=== PATIENT | male | born 1970 | race Caucasian/White ===

== ENCOUNTER 2023-05-24 15:38 | Outpatient (CLI) | payer BC, SELFPAY | END 2023-05-24 15:39 | disposition home or self-care (01) | PROVIDERS: PCP Emergency Medicine; Visit Provider Emergency Medicine | DX: Z00.00 Encounter for general adult medical examination without abnormal findings (principal); I10 Essential (primary) hypertension; Z13.6 Encounter for screening for cardiovascular disorders; Z12.5 Encounter for screening for malignant neoplasm of prostate | CPT/HCPCS: 80053; 80061; 84153 ==

== ENCOUNTER 2023-06-06 11:41 | Outpatient (CLI) | payer BC, SELFPAY ==
--- NOTE | 2023-06-06 13:16 | W.ANESCHARGE ---
Anesthesia Charges Start Date/Time Anesthesia Start Date: 06/06/23 Anesthesia Start Time: 12:40 Stop Date/Time Anesthesia Stop Date: 06/06/23 Anesthesia Stop Time: 13:11
--- NOTE | 2023-06-06 13:42 | W.ANESCHARGE ---
Anesthesia Charges Start Date/Time Anesthesia Start Date: 06/06/23 Anesthesia Start Time: 12:40 Stop Date/Time Anesthesia Stop Date: 06/06/23 Anesthesia Stop Time: 13:11
== END 2023-06-06 11:42 | disposition home or self-care (01) ==
LOC: OP CLINIC 11:42
PROVIDERS: PCP Emergency Medicine; Visit Provider Surgery
DX: Z12.11 Encounter for screening for malignant neoplasm of colon (principal); K63.5 Polyp of colon
CPT/HCPCS: 00811; 45385; 88305; J2704

== ENCOUNTER 2023-07-28 12:48 | Outpatient (CLI) | payer OTHER, SELFPAY | END 2023-07-28 12:49 | disposition home or self-care (01) | LOC: RAD 12:51 | PROVIDERS: PCP Emergency Medicine; Visit Provider Emergency Medicine | DX: I51.7 Cardiomegaly (principal); I10 Essential (primary) hypertension | CPT/HCPCS: 93306 ==

== ENCOUNTER 2023-10-31 19:24 | Outpatient (CLI) | payer OTHER, SELFPAY | END 2023-10-31 19:25 | disposition home or self-care (01) | LOC: LKVREF 19:24 | PROVIDERS: PCP Emergency Medicine; Visit Provider Emergency Medicine | DX: I10 Essential (primary) hypertension (principal) | CPT/HCPCS: 80048 ==

== ENCOUNTER 2023-12-25 08:28 | Outpatient (CLI) | payer OTHER, SELFPAY ==
--- OUTSIDE RECORDS SUMMARY | 2023-12-27 14:11 | XMS_ITS | Clinical Summary ---
Author Organization [facility] Address [place], [place] [address] Care Team Providers Care Counter Dish Carrier Name Role Phone Ana Graham MD Primary Care Provider [phone] Allergies Active Allergy Reactions Criticality Noted Date Comments Cephalosporins *Unknown 12/07/2023 Latex *Unknown 12/07/2023 Oxycodone *Unknown 12/07/2023 Medications Medication Sig Dispensed Refills Start Date End Date Status nitroglycerin (NITROSTAT) 0.[address] 2 Tablets (0.8 mg) under the tongue one time. Per CTA protocol 12/07/2023 Discontinued (*Med complete/Reg imen complete/Lev el of care change) metoprolol tartrate (LOPRESSOR) 50 mg tablet Take 1 Tablet (50 mg) by mouth. 12/07/2023 12/07/2023 Discontinued (*Med complete/Reg imen complete/Lev el of care change) metoprolol tartrate (LOPRESSOR) 5 mg/5 mL injection Inject 10 mg intravenous one time. Per CTA protocol 12/07/2023 Discontinued (*Med complete/Reg imen complete/Lev el of care change) Encounters Date Type Department Care Team Description 12/19/2023 Orders Only [facility] [address] [place], [place] [id number] Marva Camara MD <No scans attached> 12/07/2023 2:00 PM CDT [facility] [address] [place] [address] PRAVEEN Cifuentes [id number] 12/07/2023 1:45 PM CDT Orders [facility] [address] [facility] [address] [facility] [place] [address] Lab (/) 12/07/2023 Travel 11/07/2023 Telephone [place] [address] [place] [address] Marva Camara MD Cardiovascular Diagnostic Testing 11/02/2023 3:30 PM CDT Office Visit [facility] [address] [place] [address] Marva Camara MD from Last 3 Months Social History Tobacco Use Types Packs/Day Years Used Date Smoking Tobacco: Never Assessed Social Connections Answer Date Recorded Frequency of Communication with Friends and Fami ly Not on file 11/02/2023 Sex and Gender Information Value Date Recorded Sex Assigned at Not on file Gender Identity Not on file Sexual Orientation Not on file Plan of Treatment Health Maintenance Due Date Last Done Comments Tdap 01/05/1979 Depression screening for age 12+ 1980 HIV for age 15-65 01/05/1983 BMI (ht and wt on same day) for age 18+ 01/05/1986 Hepatitis C screening for ag e 18-79 01/05/1986 Tetanus booster 1988 Colonoscopy through age 75 01/05/2013 Lipids for age 45-75 01/05/2013 Zoster (shingles) series for age 50+ (1 of 2) 01/05/2018 COVID-19 vaccine series (2 - 2022- season) 2023 03/19/2021 Influenza for age 50-64 03/17/2024 Pneumococcal series for age 6-64 Aged Out No longer eligible based on patient's age to complete this topic Procedures Procedure Name Priority Date/Time Associated Diagnosis Comments CTA CHEST - DUAL READ Routine 12/07/2023 2:50 PM CDT Aortic aneurysm, unspecified portion of aorta, unspecified whether ruptured (HC) CT CARDIAC CORONARY ARTERIES DUAL READ Routine 12/07/2023 2:50 PM CDT Aortic aneurysm, unspecified portion of aorta, unspecified whether ruptured (HC) Procedure Note - Mark Madden MD / Wilfredo Adam MD - 12/07/2023 2:50 PM CDTThis note is in progress. [facility] Cardiac CT Report Name: AMINATA BRYSON : Scan Date: Accession Number: [id number] Status: Final Electronically signed by Wilfredo Adam 14:04:52 VITALS HEIGHT: 72 in (183 cm) WEIGHT: 260 lbs (118 kgs) BSA: 2.38 m^2 BMI: 35 kg/m^2 BP: 118 / 49 mmHg BASELINE HR: 64 BPM HEART RHYTHM: Normal Sinus Rhythm FINAL IMPRESSION 1. Nonobstructive coronary atherosclerosis in the RCA. 2. Total coronary artery calcium score 4. WOOD percentile based on age,gender, and race is 47. 3. Mildly dilated aortic sinuses 43 x 43 x 41 mm and area indexed 7.4cm2/m. Please see separate report for non-vascular findings. RECOMMENDATIONS: Risk factor modification for coronary atherosclerosis isadvised. STUDY QUALITY: Study quality is good. CAD-RADS: CAD-RADS Classification 1 (<25% stenosis). CALCIUM SCORING: Total coronary artery calcium score 4. WOOD percentilebased on age, gender, and race is 47. DOMINANCE: Right dominant coronary artery system. LM: The LM is normal. LAD: The LAD is normal. D1: The first diagonal is normal. D2: The second diagonal is normal. RAMUS: The ramus is normal. LCX: The LCx is normal. OM1: The first obtuse marginal is normal. OM2: The second obtuse marginal is normal. RCA: The proximal RCA has calcified atherosclerosis. There is a <25%proximal RCA stenosis. There is no mid RCA stenosis. There is no distal RCA stenosis. RIGHT PDA: The right PDA is normal. RIGHT PLB: The right posterolateral branch is normal. OTHER FINDINGS: Thoracic aorta: Aortic sinus maximum cusp-cusp: 43 x 43 x 41 mm and area of 13.5 cm2. Ascending aorta maximum diameters: 38 x 38 mm. Descending thoracic aorta maximum diameters: 27 x 26 mm. Pericardium: No effusion. Left atrium: Normal contrast opacification. Atrial septum: No evidence of shunt. Pulmonary veins: Normal anatomy. CALCIUM SCORING TABLE . --. Number of Lesions Pattern of Calcium Volume Total Score +-------+ + +--------+ --+ LM 0 0 LAD 0 0 LCx 0 0 RCA 0 4 Ramus 0 0 '-------+ + +--------+ --' SCAN INFO TEST TYPE: Calcium score, Coronary CT Angiography, Thoracic Aorta SCANNER SOFTWARE DEVELOPMENT LEADER: SIEMENS SCANNER MODEL: [employer] DOSE REDUCTION ALGORITHM: Helical with dose modulation, High-pitch(flash) PHASE UNITS: ms START PHASE: 280 ms END PHASE: 350 ms EKG GATED: Yes PRE-CONTRAST: Yes POST-CONTRAST: Yes 3D RECONSTRUCTION: Yes PACEMAKER DEVICE: No GENERAL CONTRAST AGENT CONTRAST AGENT USED?: Yes TYPE: Omnipaque 350 DOSE: 165 ml RATE: 7.5 ml/s ROUTE: IV ARM: Left BOLUS TECHNIQUE: Biphasic SERUM CREATININE: 1.3 mg/dL GFR: 60.92 ml/min/1.73m^2 CREATININE DATE: CT CONTRAST REACTION: None MEDICATION ADMINISTERED DURING SCAN TYPE: Nitroglycerin, sublingual, B-Blockers NITROGLYCERIN, TOTAL DOSE: 0.8 mg B-RETA TYPE: Oral, IV B-RETA NAME, ORAL: Metoprolol tartrate B-RETA NAME, IV: Metoprolol tartrate B-BLOCKERS, ORAL DOSE: 100 mg B-BLOCKERS, IV DOSE: 10 mg NUMBER OF DOSES: 1 RADIATION DOSE DLP: 412 KV: 120 SETUP PATIENT TYPE: Outpatient REASON(S) FOR SCAN: Chest pain, Evaluate thoracic aorta, Thoracicaneurysm REFERRING PHYSICIAN: MARVA CAMARA TECHNOLOGIST: Thi Martinez BILLING Patient Account [id number] ICD10 Codes I71.9 Report generated by [employer], a product of [employer] For Patients: As a result of the 21st Century Cures Act, medical imagingexams and procedure reports are released immediately into your electronicmedical record. You may view this report before your referring provider.If you have questions, please contact your health care provider. OVER-READ OVER-READ OVER-READ OVER-READ: DETAILED RADIOLOGY EXTRACARDIAC OVER-READ OF CARDIAC CT12/07/2023 TECHNIQUE: Please see cardiology report for technical information. 165cc Omnipaque-350 intravenous contrast. This exam is being performed in conjunction with the services provided bythe [facility] ([facility]). CLINICAL HISTORY: Cardiac over-read. FINDINGS: Extracardiac findings: Lungs: 2 millimeter nodule within the middle lobe. If the patient isconsidered low risk for primary lung cancer, these do not requireadditional follow-up. If the patient is considered high-risk for primarylung cancer, consider optional unenhanced chest CT in 12 months todocument stability and to assess for underlying malignant potential perFleischner society guidelines. Pleural spaces: No pleural effusion or pneumothorax where visualized. Extra cardiac mediastinum: No lymphadenopathy by size criteria. Upper abdomen: Visualized portions of the upper abdomen show no acuteprocess. Bones and soft tissues: No discrete acute process within the osseousstructures or soft tissues. Please note that all CT scans at this facility use dose modulation,iterative reconstruction, and/or weight-based dosing when appropriate toreduce radiation dose to as low as reasonably achievable. Dictated by Mark Madden MD @ 12/08/2023 11:19:07 PM (Electronic Signature) CREATININE,ISTA T Routine 12/07/2023 2:28 PM CDT Routine general medical examination at a [facility] from Last 3 Months Results * CTA CHEST - DUAL READ (12/07/2023 2:50 PM CDT) Anatomical Region Laterality Modality CHEST Computed Tomogra phy 12/07/2023 2:53 PM CDT Impressions 12/18/2023 3:44 PM CDT 1. Please see separate dictation for all cardiac and arterial structures. 2. No suspicious incidental non cardiovascular findings. Please note that all CT scans at this facility use dose modulation, iterative reconstruction, and/or weight-based dosing when appropriate to reduce radiation dose to as low as reasonably achievable. Dictated by Randy Aquino MD @ 12/07/2023 4:09:35 PM (Electronic Signature) Narrative 12/18/2023 3:44 PM CDT ?[facility] ? Cardiac CT Report ??MRN: ? [id number] ?Name: ? AMINATA BRYSON ?: ?Scan Date: ?Accession Number: ? [id number] ?Status: ? Final ? Electronically signed by Wilfredo Adam 14:04:52 VITALS HEIGHT: 72 in ?(183 cm) WEIGHT: 260 lbs ?(118 kgs) BSA: 2.38 m^2 BMI: 35 kg/m^2 BP: 118 / 49 mmHg BASELINE HR: 64 BPM HEART RHYTHM: Normal Sinus Rhythm FINAL IMPRESSION 1. Nonobstructive coronary atherosclerosis in the RCA. 2. Total coronary artery calcium score 4. [place] percentile based on age, gender, and race is 47. 3. Mildly dilated aortic sinuses 43 x 43 x 41 mm and area indexed 7.4 cm2/m. Please see separate report for non-vascular findings. RECOMMENDATIONS: Risk factor modification for coronary atherosclerosis is advised. STUDY QUALITY: Study quality is good. CAD-RADS: CAD-RADS Classification 1 (<25% stenosis). CALCIUM SCORING: Total coronary artery calcium score 4. WOOD percentile based on age, gender, and race is 47. DOMINANCE: Right dominant coronary artery system. LM: The LM is normal. LAD: The LAD is normal. D1: The first diagonal is normal. D2: The second diagonal is normal. RAMUS: The ramus is normal. LCX: The LCx is normal. OM1: The first obtuse marginal is normal. OM2: The second obtuse marginal is normal. RCA: The proximal RCA has calcified atherosclerosis. There is a <25% proximal RCA stenosis. There is no mid RCA stenosis. There is no distal RCA stenosis. RIGHT PDA: The right PDA is normal. RIGHT PLB: The right posterolateral branch is normal. OTHER FINDINGS: Thoracic aorta: ??Aortic sinus maximum cusp-cusp: 43 x 43 x 41 mm and area of 13.5 cm2. ??Ascending aorta maximum diameters: 38 x 38 mm. ??Descending thoracic aorta maximum diameters: 27 x 26 mm. Pericardium: No effusion. Left atrium: Normal contrast opacification. Atrial septum: No evidence of shunt. Pulmonary veins: Normal anatomy. CALCIUM SCORING TABLE . . ? Number of Lesions Pattern of Calcium Volume Total Score +-------+ + +--------+ + LM ? 0 ? 0 LAD ? 0 ? 0 LCx ? 0 ? 0 RCA ? 0 ? 4 Ramus ? 0 ? 0 '-------+ + +--------+ ' SCAN INFO TEST TYPE: ??Calcium score, Coronary CT Angiography, Thoracic Aorta SCANNER SOFTWARE DEVELOPMENT LEADER: ??SIEMENS SCANNER MODEL: ??[employer] DOSE REDUCTION ALGORITHM: ??Helical with dose modulation, High-pitch (flash) PHASE UNITS: ??ms START PHASE: ??280 ms END PHASE: ??350 ms EKG GATED: ??Yes PRE-CONTRAST: ??Yes POST-CONTRAST: ??Yes 3D RECONSTRUCTION: ??Yes PACEMAKER ?DEVICE: ??No GENERAL ?CONTRAST AGENT ?CONTRAST AGENT USED?: ??Yes ?TYPE: ??Omnipaque 350 ?DOSE: ??165 ml ?RATE: ??7.5 ml/s ?ROUTE: ??IV ?ARM: ??Left ?BOLUS TECHNIQUE: ??Biphasic ?SERUM CREATININE: ??1.3 mg/dL ?GFR: ??60.92 ml/min/1.73m^2 ?CREATININE DATE: ?CT CONTRAST REACTION: ??None ?MEDICATION ADMINISTERED DURING SCAN ?TYPE: ??Nitroglycerin, sublingual, B-Blockers ?NITROGLYCERIN, TOTAL DOSE: ??0.8 mg ?B-RETA TYPE: ??Oral, IV ?B-RETA NAME, ORAL: ??Metoprolol tartrate ?B-RETA NAME, IV: ??Metoprolol tartrate ?B-BLOCKERS, ORAL DOSE: ??100 mg ?B-BLOCKERS, IV DOSE: ??10 mg ?NUMBER OF DOSES: ??1 ?RADIATION DOSE ?DLP: ??412 ?KV: ??120 ?SETUP ?PATIENT TYPE: ??Outpatient ?REASON(S) FOR SCAN: ??Chest pain, Evaluate thoracic aorta, Thoracic aneurysm ?REFERRING PHYSICIAN: ??MARVA CAMARA ?TECHNOLOGIST: ??Thi Martinez BILLING Patient Account ?[id number] ICD10 Codes ?I71.9 Report generated by [employer], a product of [employer] For Patients: As a result of the 21st Century Cures Act, medical imaging exams and procedure reports are released immediately into your electronic medical record. ??You may view this report before your referring provider. ?? If you have questions, please contact your health care provider. OVER-READ ??OVER-READ ??OVER-READ OVER-READ: DETAILED RADIOLOGY EXTRACARDIAC OVER-READ OF CARDIAC CT 12/07/2023 COMPARISON: ??None available. ?? TECHNIQUE: Please see cardiology report for technical information. ??165 cc Omnipaque-350 intravenous contrast. ?? This exam is being performed in conjunction with the services provided by the [facility] ([facility]). CLINICAL HISTORY: Over-read of non-cardiovascular structures ?? FINDINGS: ??Please see separate dictation for all cardiac and arterial structures. Thyroid: Unremarkable Airways: The central airways are patent. Lungs: No suspicious pulmonary opacities. Pulmonary artery: No central pulmonary artery embolism. Pleural spaces: No pneumothorax or pleural effusion. Lymph Nodes: No significant axillary, mediastinal, or hilar lymphadenopathy. Limited upper abdomen: No acute or significant incidental findings. MSK: No aggressive appearing osseous lesion. Marva Camara MD CT * (ABNORMAL) CREATININE,ISTAT (12/07/2023 2:28 PM CDT) Pathologist [facility] CREATININE, POCT 1.30(H) 0.57 - 1.11 mg/dL 12/07/2023 2:32 PM CDT [facility] Comment:Caution: Patients ta oj Hydroxyurea have falsely increased iStat Creatinine results. Verify creatinine results ordering a Creatinine (36522.2) eGFR 65(L) >90 mL/min/1.7 3m2 12/07/2023 2:32 PM CDT [facility] Comment:As of 2021, eG FR is calculated by the CKD-EPI creatinine equation without race adjustment. eGFR can be influenced by muscle mass, exercise, and diet. The reported eGFR is an estimation only and is only applicable if the renal function is stable. Blood BLOOD SPECIMEN / Unknown 12/07/2023 2:28 PM CDT 12/07/2023 2:32 PM CDT Wilfredo Adam MD CHEMISTRY [facility] [address] [place] [address], [place] from Last 3 Months Care Teams Counter Dish Carrier Relationship Specialty Start Date End Date Ana Graham MD [address] [place] [address] PCP - General Emergency Medicine 07/28/23
== END 2023-12-25 08:29 | disposition home or self-care (01) ==
LOC: NFLDREF 12-27 14:10
PROVIDERS: PCP Emergency Medicine; Referring Provider Emergency Medicine; Visit Provider Emergency Medicine
DX: E78.5 Hyperlipidemia, unspecified (principal)
CPT/HCPCS: 80061

== ENCOUNTER 2024-06-26 13:45 | Outpatient (CLI) | payer OTHER, SELFPAY | END 2024-06-26 13:46 | disposition home or self-care (01) | PROVIDERS: PCP Emergency Medicine; Visit Provider Emergency Medicine | DX: I10 Essential (primary) hypertension (principal); E78.5 Hyperlipidemia, unspecified; R00.2 Palpitations | CPT/HCPCS: 80048; 84443 ==

== ENCOUNTER 2024-07-15 19:46 | Outpatient (CLI) | payer OTHER, SELFPAY ==
--- NOTE | 2024-07-30 08:34 | W.PM.SLEEP ---
Sleep Study Details Details Interpreting Provider: Jhonny Date of Sleep Study: 07/15/24 Sleep Study Details: STUDY TYPE:? Home unattended ? BMI:? 36.9 ORDERING PROVIDER:Omaira Metzger INDICATION:? Concerned about sleep apnea ? SLEEP SUMMARY:? 350 minutes monitored RESPIRATORY SUMMARY:? AHI 62.6, low oxygen 64, 23.6% of study oxygen less than 90%, snoring 89.2% PERIODIC LIMB MOVEMENTS OF SLEEP:? Not recorded CARDIAC:? Range 52-89, mean 62 beats per minute IMPRESSION:? Severe obstructive sleep apnea with significant hypo oxygenation RECOMMENDATION: Treatment options include in-lab titration, AutoSet CPAP. Weight loss is also recommended.
== END 2024-07-15 19:47 | disposition home or self-care (01) ==
LOC: SLEEP 07-25 09:20
PROVIDERS: PCP Emergency Medicine; Visit Provider Emergency Medicine
DX: G47.33 Obstructive sleep apnea (adult) (pediatric) (principal)
CPT/HCPCS: 95806

== ENCOUNTER 2025-04-22 09:12 | Outpatient (CLI) | payer OTHER, SELFPAY | END 2025-04-22 09:13 | disposition home or self-care (01) | PROVIDERS: PCP Family Medicine; Visit Provider Family Medicine | DX: E78.2 Mixed hyperlipidemia (principal); I10 Essential (primary) hypertension; Z12.5 Encounter for screening for malignant neoplasm of prostate | CPT/HCPCS: 80048; 80061; G0103 ==